=== PATIENT | male | born 1980 | race Caucasian/White ===

== ENCOUNTER 2017-05-31 21:41 | Emergency (ER) | payer OTHER ==
--- NOTE | 2017-05-31 21:45 | UC ---
Throat Pain/Nasal [place] HPI - HPI Summary HPI Summary: Pt presents with with complaints of body aches, headache, fever, and slight cough for the last 5 days. He said that he first had a fever 5 days ago that was present for 2 days, but subsided and was relieved with tylenol. At that same time he developed a headache, general body aches, fatigue, and slight dry cough. He was treating his symptoms conservatively and resting, but earlier today he had a fever of 102.7 and decided to seek medical eval. He took tylenol approx a half hour ago after taking his temp. Denies sinus symptoms, SOB, chest pain, abdominal pain, N/V/D/C, vision changes, dizziness, numbness, dysuria, hematuria, or flank pain. He does mention that he had a vasectomy about 1.5 months ago and the pain has gradually improved. - History of Current Complaint Stated Complaint: COLD Time Seen by Provider: 05/31/17 21:44 Hx Obtained From: Patient Onset/Duration: Gradual Onset Severity: Moderate Cough: Nonproductive - Allergies/Home Medications Allergies/Adverse Reactions: Allergies Allergy/AdvReac Type Severity Reaction Status Date / Time Sulfa Antibiotics Allergy Unknown Verified 05/31/17 21:57 Reaction Details Home Medications: Home Medications NK [No Home Medications Reported] 05/31/17 [History Confirmed 05/31/17] PMH/Surg Hx/FS Hx/Imm Hx Previously Healthy: Yes - Family History Known Family History: Positive: Unknown - Social History Occupation: Employed Full-time Lives: With Family Alcohol Use: None Substance Use Type: None Smoking Status (MU): Never Smoked Tobacco Review of Systems Constitutional: Fever, Fatigue Skin: Negative Eyes: Negative ENT: Negative Respiratory: Cough Cardiovascular: Negative Gastrointestinal: Negative Genitourinary: Negative Neurovascular: Negative Musculoskeletal: Other: - Body aches Neurological: Headache Psychological: Negative All Other Systems Reviewed And Are Negative: Yes Physical Exam Triage Information Reviewed: Yes Appearance: Well-Appearing, Well-Nourished Vital Signs Reviewed: Yes Eyes: Positive: Conjunctiva Clear, Other: - PERRLA. Negative: Conjunctiva Inflamed, Discharge ENT: Positive: Hearing grossly normal, Pharynx normal, TMs normal, Uvula midline. Negative: Pharyngeal erythema, Nasal congestion, Nasal drainage, TM bulging, TM dull, TM red, Tonsillar swelling, Tonsillar exudate, Muffled voice, Hoarse voice, Sinus tenderness Neck: Positive: Supple, No Lymphadenopathy, Other: - FROM. NTTP. Respiratory: Positive: Chest non-tender, Lungs clear, Normal breath sounds, No respiratory distress, No accessory muscle use Cardiovascular: Positive: RRR, No Murmur, Pulses Normal Abdomen Description: Positive: Nontender, No Organomegaly, Soft. Negative: CVA Tenderness (R), CVA Tenderness (L), Distended, Guarding Bowel Sounds: Positive: Present Musculoskeletal: Positive: Strength Intact, ROM Intact, No Edema, Other: - No specific joint tenderness. Neurological: Positive: Alert Psychological: Positive: Age Appropriate Behavior Skin: Negative: rashes, significant lesion(s) Throat Pain/Nasal Course/Dx - Course Course Of Treatment: POC influenza swab was negative. UA was negative for infection. Suspect viral illness. Advised patient to rest and increase fluid intake. F/u with his PCP or the ED if he develops new or worsening symptoms. - Differential Dx/Diagnosis Differential Diagnosis/HQI/PQRI: Influenza, Mononucleosis, Otitis Media, Pharyngitis, Sinusitis, Tonsillitis, URI Provider Diagnoses: Cough. Fatigue. Body Aches Discharge - Discharge Plan Condition: Stable Disposition: HOME Patient Education Materials: Viral Syndrome (ED) Referrals: Alex Washington MD [Primary Care Provider] - Additional Instructions: If you develop a worsening fever, SOB, chest pain, abdominal pain, new or worsening symptoms - please call your PCP or go to the ED. Your blood pressure was high at todays visit. Please see your primary provider within 4 weeks for recheck and re-evaluation. 1) Rest and drink plenty of fluids! 2) Continue taking Tylenol alternating with ibuprofen for any fevers or discomfort.
[2017-05-31 21:56] VITALS: BP 145/86
== END 2017-05-31 22:30 | disposition home or self-care (01) ==
LOC: UCEAST 21:41
DX: R05 Cough (principal); R53.83 Other fatigue; M79.1 Myalgia; Z88.2 Allergy status to sulfonamides
CPT/HCPCS: 81003; 87502; 99211; G0463